=== PATIENT | male | born 1980 ===

== ENCOUNTER 2016-05-22 11:45 | Inpatient (IN) | payer MEDICAID, OTHER ==
[~2016-05-22] VITALS: Ht 177.8 cm; Wt 97.0 kg
[~2016-05-22 11:45] MED LIST: IBUP800T28 PO; LEVE100014 PO; Midazolam 5 mg/mL 10 mL Inj IV PRN; TAMS0.4C98 PO; levETIRAcetam Inj 1,000 MG in IV Premix 1 EACH IV ONE
[2016-05-22] MEDS ORDERED: 0.9% Sodium Chloride 1,000 ML IV ONE ×2 (11:46→11:55)
--- NOTE | 2016-05-22 11:48 | ED.REPORT ---
HPI-Seizure Date of Service May 22, 2016 ED Provider: Terrance Maynard MD The patient is a 36 year old male with a hx of seizure disorder on Keppra presents to the ED via EMS due to an uncontrollable seizure. EMS was called due to a witnessed seizure. They administered 5 mg midazolam and his seizure stopped. He started seizing again about 5-10 minutes later. They administered an additional 5 mg Midazolam with no change. His vitals were stable en route. Nursing Notes Stated Complaint: SEIZURE Nursing Notes Reviewed: Yes Allergies: Coded Allergies: hydrocodone (Verified Allergy, Severe, Rash,Itching,SOB, 05/22/16) Scheduled Levetiracetam (Keppra) 1,000 Mg Tablet 2,000 MG PO BID Tamsulosin (Flomax) 0.4 Mg Capsule 0.4 MG PO DAILY Scheduled PRN Ibuprofen (Ibuprofen) 800 Mg Tablet 800 MG PO TID PRN PRN For Pain General Time Seen by Provider: 11:45 Chief Complaint Chief Complaint: Seizure, generalized Seizure Anatomic Location: Generalized Hx Obtained From: Other family..., EMS Arrived By: Ambulance Onset Occurred: Just prior to arrival Symptom Duration: Waxes and wanes Progression Since Onset: Waxes and wanes Recent Healthcare: No recent hospitalization, Recent doctor visit Similar Sx Previous: Yes Past Medical History Past Medical History 1. Status epilepticus. 2. Opiate use disorder on Suboxone. 3. Kidney disease 4. 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 Reports: Hypertension Past Surgical History 1. Tonsillectomy. 2. Appendectomy. 3. Cholecystectomy. 4. Nose surgery Family History Noncontributory Smoking History Current Every Day Smoker Social History The patient is engaged, has 4 children 2 boys and 2 girls (ages 1, 3, 5, 6). 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 Ambulatory Status Independent Review of Systems Unable to Obtain ROS Patient condition Neurologic: Reports: Seizure, Shaking Physical Exam Initial Vital Signs Vital Signs (First) Date Time Temp Pulse Resp B/P Pulse Ox O2 Delivery O2 Flow Rate FiO2 05/22/16 11:55 38.0 115 27 125/70 98 Room Air 05/22/16 12:12 2 Initial VS: Reviewed Abdomen / GI: Soft, Non-tender, No guarding, No rebound, No distention Lymphatic: No lymphadenopathy Extremities: Vascular intact, Neuro intact, No swelling, No tenderness Skin: Warm, Dry, No cyanosis Alertness: Positive: Unresponsive Appears post ictal Neck: Supple, No swelling He has what appears to be hickies bilaterally to his neck. Respiratory / Chest: Atraumatic, Breath sounds NL, Breath sounds = bilat, No respiratory distress, No rales, No rhonchi, No wheezing Cardiovascular: Regular rhythm, Heart sounds NL, No murmurs, No rubs Heart Rate / Rhythm: Positive: Tachycardia Mental Status: Positive: Unresponsive Appears post-ictal Head / Eyes: Atraumatic, Normocephalic Pupils are pinpoint bilaterally ENT: Airway patent Upper Extremity / MS: No deformity, Neurologic intact, Vascular intact Lower Extremity / Pelvis / MS: No deformity, Neurologic intact, Vascular intact Interpretation & Diagnostics Lab Results Interpretation Result Diagram: 05/22/16 1115 05/22/16 1115 Test 05/22/16 11:15 05/22/16 12:11 05/22/16 12:15 White Blood Count 6.8th/mm3 (3.8-10.1) Red Blood Count 4.98mil/mm3 (4.40-5.80) Hemoglobin 14.6g/dL (13.8-17.2) Hematocrit 43.1% (41.0-50.0) Mean Corpuscular Volume 86.5fL (81-100) Mean Corpuscular Hemoglobin 29.3pg (27.0-35.0) Mean Corpuscular Hemoglobin Concent 33.9% (32.0-37.0) Red Cell Distribution Width 13.3% (12.3-15.4) Platelet Count 278bil/L (150-400) Neutrophils (%) (Auto) 53.8% (40-74) Lymphocytes (%) (Auto) 32.6% (14-46) Monocytes (%) (Auto) 11.0% (4-12) Eosinophils (%) (Auto) 1.8% (0-5) Basophils (%) (Auto) 0.7% (0-3) Sodium Level 147mEq/L (134-144) Potassium Level 4.6mEq/L (3.5-5.2) Chloride Level 107mEq/L (97-108) Carbon Dioxide Level 22mmol/L (18-29) Blood Urea Nitrogen 9mg/dL (6-20) Creatinine 0.97mg/dL (0.76-1.27) Estimat Glomerular Filtration Rate 93mL/min (>59) Glucose Level 105mg/dL (60-99) Calcium Level 8.9mg/dL (8.5-10.1) Lactic Acid Level 2.6mmol/L (0.4-2.0) CT Head Interpretation IMPRESSION: 1. No acute intracranial abnormalities. 2. New bilateral sphenoid sinus mucosal thickening may reflect sinusitis. 3. Nonacute right nasal fracture as before. Dictated by: Tulio Avilez M.D. on 05/22/2016 at 13:16 Study: Head CT no contrast Interpretation / Wet Read by: Interpret - Radiologist Re-Eval/Medical Decision Med Decision/Clinical Course The patient is a 36 year old male with a hx of seizure disorder on Keppra presents to the ED via EMS due to an uncontrollable seizure. The patient arrives actively seizing despite receiving two 5 mg doses of Versed prior to arrival. Patient was placed on continuous cardiac monitoring, pulse oximetry and end-tidal CO2. He was tachycardic but with otherwise stable vital signs. Due to the patient being actively seizing no history was able to be initially obtained. IV access was obtained and we administered 5 mg of Versed. He did not demonstrate any respiratory depression. He was loaded with 1000 mg of IV Keppra. CT scan of the head was obtained and demonstrated no evidence of acute intracranial process or hemorrhage. Laboratory studies were obtained as below: CBC unremarkable, CMP: hypernatremia with a sodium 147, lactic acid 2.6, electrolytes otherwise unremarkable, Keppra level pending Keppra level remained pending. Given the severity of the patient's seizure, intractable nature of his seizure I feel that he should be admitted for neurology consultation and further tailoring of his antiepileptic medications. Patient was discussed with the admitting hospitalist and transferred to the [facility] stable condition. Meanwhile here in the emergency department the patient was postictal though he woke up and was confused as to time and location. I suspect that this is related to his postictal state. Source of Hx: Old records, EMS Consultation : Referral / Consult Name: Klaudia Norwood MD Consulted With: Hospitalist Call Returned at: 12:21 Supervisor [employer] Workers: Will see patient, Agrees with eval, Agrees with plan, Accepts admit Counseled Regarding: Diagnosis, Lab results, Need for admission Discharge & Departure Impression: Primary Impression: Seizure Additional Impressions: Postictal state Status epilepticus Elevated lactic acid level Hypernatremia Tachycardia Disposition: ADMITTED TO HOSPITAL Discharge Condition All VS Reviewed: Yes Condition: Stable Referrals: Jazmine Holguin MD (PCP) (Family) Crit Care Except Billable Proc Time Spent: 105-134 minutes Services Performed: Patient management by me, Time spent at bedside, Reviewing test results, Reviewing imaging, Discussing patient care, Documentation in record, Time with fam/surrogate Scribe Attestation Portions of this note were transcribed by Kavya Correa. I, Dr. Maynard personally performed the history, physical exam and medical decision-making; I reviewed and confirmed the accuracy of the information in the transcribed note. Signed by: Sameera Ferrari, 05/21/2015 and 1330. copies to: Jazmine Holguin MD, Beck O MD May 22, 2016 11:48 Kavya Correa May 22, 2016 11:56
[2016-05-22] MEDS ORDERED: Ondansetron 2 mg/mL 2 mL Inj IVPUSH ONE (11:50)
[2016-05-22 11:55] VITALS: BP 125/70; PULSE 115; RESP 27; O2SAT 98
[2016-05-22 12:12] VITALS: BP 103/64; PULSE 90; RESP 19; O2SAT 97
[2016-05-22 12:44] LABS: BASOPHILS % (AUTO) 0.7 % (0-3); EOSINOPHILS % (AUTO) 1.8 % (0-5); Mean Corpuscular Hemoglobin 29.3 pg (27.0-35.0); Mean Corpuscular Volume 86.5 fL (81-100); NEUTROPHILS % (AUTO) 53.8 % (40-74); Platelet Count 278 bil/L (150-400)
--- NOTE | 2016-05-22 13:21 | DRSVH ---
PROCEDURE: CT BRAIN WITHOUT CONTRAST ([id number]) INDICATIONS: 36-year-old male with new onset seizures. TECHNIQUE: Noncontrast 4.5 mm thick angled axial sections acquired from the foramen magnum to the vertex, with c oronal reformats. COMPARISON: Outside Film, MR, MR BRAIN W&WO CON, 05/12/2015, 17:07. [facility], CT, CT B RAIN WO CON, 04/07/2016, 10:24. Outside Film, CT, CT BRAIN WO CON, 05/11/2015, 21:15. [facility], CT, CT BRAIN WO CON, 05/11/2015, 15:56. FINDINGS: Image quality: Excellent. CSF spaces: Basal cisterns are patent. No extra-axial fluid collections. Ventricles are normal in size and shape. Brain: No midline shift. No intracranial masses or hemorrhage. Forrester-white matter interface is norm al. Skull and face: Calvarium appears intact, without suspicious lesions. Nonacute right nasal fracture is again noted. Sinuses: Visualized sinuses and mastoids are clear, except for new moderate bilateral sphenoid sinus mucosal thickening. IMPRESSION: 1. No acute intracranial abnormalities. 2. New bilateral sphenoid sinus mucosal thickening may reflect sinusitis. 3. Nonacute right nasal fracture as before. Dictated by: Tulio Avilez M.D. on 05/22/2016 at 13:16 Approved by: Tulio Avilez M.D. on 05/22/2016 at 13:20
[2016-05-22 13:23] VITALS: BP 98/62; PULSE 79; RESP 16; O2SAT 99
[2016-05-22] MEDS ORDERED: Alum-Mag Hydrox-Simeth 30 mL Suspension PO PRN ×2 (13:35→17:05)
[2016-05-22] MEDS ORDERED: Ondansetron 2 mg/mL 2 mL Inj IVPUSH PRN ×2 (13:35→17:05)
[2016-05-22 14:09] VITALS: BP 98/62; PULSE 79; RESP 16; O2SAT 99
[2016-05-22 14:42] VITALS: BP 107/64; PULSE 64; RESP 15; O2SAT 99
--- NOTE | 2016-05-22 14:42 | NUR ---
Admit [facility] Pt transferred from ED at approx 1440, arrived with bag of belongings. Pt sleepy but aroused by minor stimulation, IV fluids infusing, 3L O2. REGULATORY COORDINATOR charting VS now, assessment and admit by show card writer to follow. Care continues
[2016-05-22 16:56] VITALS: BP 126/64; PULSE 58; RESP 16; O2SAT 97
[2016-05-22] MEDS ORDERED: Polyethylene Glycol (PEG) 17 Gm Powder PO PRN (17:05)
--- NOTE | 2016-05-22 17:25 | PCM.HPMED ---
Subjective Date of Service May 22, 2016 Primary Provider: Admitting Physician: Klaudia Norwood MD Primary Care Physician: Jazmine Holguin MD Attending Physician: Klaudia Norwood MD Chief Complaint: Seizure History of Present Illness: Patient says he has been feeling well. Last he remembers he was at home, had just finished talking on the phone with his who is at work, was then talking with his mother who was there at his home and does not remember anything after that. He is been told that he began to have a seizure and collapsed to the floor. According to the emergency physician and EMS was called and the patient was having seizure activity when they arrived and they gave him 5 mg of midazolam. The seizure stopped but then about 5-10 minutes later he again began having what looked like seizure activity so they gave an additional 5 mg of midazolam. There was no change with this and the apparent seizure activity continued and was still present when he arrived in the emergency department. He was given another 5 mg of Versed with no change and then loaded with 1000 mg of Keppra and subsequently seizure activity ceased. Currently he is alert and has no complaints. Review of Systems: Review of systems is unremarkable. He denies any recent acute illnesses. No headache, no URI, sinus symptoms, cough, fever or chills. No sore throat or difficulty swallowing. No shortness of breath or chest pain. No heartburn or abdominal pain, nausea vomiting or diarrhea. No dysuria. No joint or muscle pains, no swelling in his feet. Allergies Coded Allergies: hydrocodone (Verified Allergy, Severe, Rash,Itching,SOB, 05/22/16) Home Medications Initially he stated he is taking 1000 mg of Keppra twice a day the name and I said the emergency department thought it was 2000 mg twice a day he agreed that that is his current dose. He says it is being prescribed by Dr. Villa but does not recall the last time he has seen her. He says he does have an appointment with her in July. Keppra level is still pending today but there is one in the computer in March which is "none detected". He says the [facility] did a Keppra level 2 weeks ago and results were to be sent to Dr. Paredes but he has not heard the results. He says he obtains Keppra from the [facility] but they are not open today to confirm. He states he is on Suboxone 10 mg daily and says he receives this from Dr. Amado and at [facility] Possible seizure disorder, but also see Dr. Ricci neurology consult in September 2015. She was not sure these spells represented true seizures and also noted that he has not had any documented abnormal EEG. History of opioid abuse and by his report currently on Suboxone Surgical History Tonsillectomy, appendectomy, cholecystectomy. 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 Hx Alcohol Use: No (none for 15 years) Hx Substance Use: Yes (opiates, , now on suboxone) Smoking Status: Current Every Day Smoker (says 6 cigarettes per day) Living Arrangement: with Family (spouse and 3 children, also has 3 children by a previous marriage) Exam Vital Signs Vital Sign - Last Date Time Temp Pulse Resp B/P Pulse Ox O2 Delivery O2 Flow Rate FiO2 05/22/16 16:56 36.7 58 16 126/64 97 Room Air 05/22/16 14:42 3.00 Exam Alert and oriented HEENT unremarkable, cranial nerves appear intact Neck supple, no JVD, carotids 2+ Heart regular Lungs clear Abdomen soft, nontender, bowel tones normal, no apparent masses or hepatosplenomegaly Extremities unremarkable Hand hot stick man are strong and equal, raises both legs strongly off the bed against resistance Lab and Diagnostics Result Diagram: 05/22/16 1115 05/22/16 1115 X-Rays, CTs and MRIs Date of Service: 05/22/16 1146 PROCEDURE: CT BRAIN WITHOUT CONTRAST ([id number]) INDICATIONS: 36-year-old male with new onset seizures. TECHNIQUE: Noncontrast 4.5 mm thick angled axial sections acquired from the foramen magnum to the vertex, with coronal reformats. COMPARISON: Outside Film, MR, MR BRAIN W&WO CON, 05/12/2015, 17:07. [facility], CT, CT BRAIN WO CON, 04/07/2016, 10:24. Outside Film, CT, CT BRAIN WO CON, 05/11/2015, 21:15. [facility], CT, CT BRAIN WO CON, , 15:56. FINDINGS: Image quality: Excellent. CSF spaces: Basal cisterns are patent. No extra-axial fluid collections. Ventricles are normal in size and shape. Brain: No midline shift. No intracranial masses or hemorrhage. Forrester-white matter interface is normal. Skull and face: Calvarium appears intact, without suspicious lesions. Nonacute right nasal fracture is again noted. Sinuses: Visualized sinuses and mastoids are clear, except for new moderate bilateral sphenoid sinus mucosal thickening. IMPRESSION: 1. No acute intracranial abnormalities. 2. New bilateral sphenoid sinus mucosal thickening may reflect sinusitis. 3. Nonacute right nasal fracture as before. Assessment & Plan 35-year-old male with a supposed history of seizure disorder although this is not clearly documented. He states he has been compliant on his Keppra therapy. He presented today with seizure-like activity refractory to Versed and subsequently ceased when loaded with Keppra 1000 mg IV. Currently he states that he is not willing to stay the night in the hospital and wants to leave immediately. Therefore he signed out AMA. He does have a follow-up appointment , by his report, with his neurologist in July. He could also follow up at the [facility] as he reports they did recently do a Keppra level but he has not heard the results. Klaudia Norwood MD May 22, 2016 17:25
--- NOTE | 2016-05-22 17:35 | NUR ---
AMA Pt left AMA despite MD and discussions with senior medical writer over risks involved. AMA paperwork signed, copy to chart. IV x2 d/c intact. VS stable upon leaving unit. All belongings taken with him. Pt walked off unit on foot.
[2016-05-22] MEDS ORDERED: levETIRAcetam 500 mg Tablet PO SCH (20:30)
--- NOTE | 2016-05-23 11:26 | PCM.DC.MED ---
Discharge Summary Date of Service May 22, 2016 Dates of Hospitalization Date of Hospital Admission May 22, 2016 at 12:51 Date of Discharge: May 22, 2016 Providers: Admitting Physician: Klaudia Norwood MD Primary Care Physician: Jazmine Holguin MD Attending Physician: Klaudia Norwood MD Procedures XRay, CTs & MRIs Date of Service: 05/22/16 1146 PROCEDURE: CT BRAIN WITHOUT CONTRAST ([id number]) INDICATIONS: 36-year-old male with new onset seizures. TECHNIQUE: Noncontrast 4.5 mm thick angled axial sections acquired from the foramen magnum to the vertex, with coronal reformats. COMPARISON: Outside Film, MR, MR BRAIN W&WO CON, 05/12/2015, 17:07. [facility], CT, CT BRAIN WO CON, 04/07/2016, 10:24. Outside Film, CT, CT BRAIN WO CON, 05/11/2015, 21:15. [facility], CT, CT BRAIN WO CON, , 15:56. FINDINGS: Image quality: Excellent. CSF spaces: Basal cisterns are patent. No extra-axial fluid collections. Ventricles are normal in size and shape. Brain: No midline shift. No intracranial masses or hemorrhage. Forrester-white matter interface is normal. Skull and face: Calvarium appears intact, without suspicious lesions. Nonacute right nasal fracture is again noted. Sinuses: Visualized sinuses and mastoids are clear, except for new moderate bilateral sphenoid sinus mucosal thickening. IMPRESSION: 1. No acute intracranial abnormalities. 2. New bilateral sphenoid sinus mucosal thickening may reflect sinusitis. 3. Nonacute right nasal fracture as before. Brief History Patient says he has been feeling well. Last he remembers he was at home, had just finished talking on the phone with his who is at work, was then talking with his mother who was there at his home and does not remember anything after that. He is been told that he began to have a seizure and collapsed to the floor. According to the emergency physician and EMS was called and the patient was having seizure activity when they arrived and they gave him 5 mg of midazolam. The seizure stopped but then about 5-10 minutes later he again began having what looked like seizure activity so they gave an additional 5 mg of midazolam. There was no change with this and the apparent seizure activity continued and was still present when he arrived in the emergency department. He was given another 5 mg of Versed with no change and then loaded with 1000 mg of Keppra and subsequently seizure activity ceased. Currently he is alert and has no complaints. Hospital Course 35-year-old male with a supposed history of seizure disorder although this is not clearly documented. He states he has been compliant on his Keppra therapy. He presented today with seizure-like activity refractory to Versed and subsequently ceased when loaded with Keppra 1000 mg IV. Currently he states that he is not willing to stay the night in the hospital and wants to leave immediately. Therefore he signed out AMA. He does have a follow-up appointment , by his report, with his neurologist in July. He could also follow up at the [facility] as he reports they did recently do a Keppra level but he has not heard the results. Exam Vital Signs (Last) Date Time Temp Pulse Resp B/P Pulse Ox O2 Delivery O2 Flow Rate FiO2 05/22/16 16:56 36.7 58 16 126/64 97 Room Air 05/22/16 14:42 3.00 Test 05/22/16 11:15 05/22/16 12:11 05/22/16 12:15 White Blood Count 6.8th/mm3 (3.8-10.1) Red Blood Count 4.98mil/mm3 (4.40-5.80) Hemoglobin 14.6g/dL (13.8-17.2) Hematocrit 43.1% (41.0-50.0) Mean Corpuscular Volume 86.5fL (81-100) Mean Corpuscular Hemoglobin 29.3pg (27.0-35.0) Mean Corpuscular Hemoglobin Concent 33.9% (32.0-37.0) Red Cell Distribution Width 13.3% (12.3-15.4) Platelet Count 278bil/L (150-400) Neutrophils (%) (Auto) 53.8% (40-74) Lymphocytes (%) (Auto) 32.6% (14-46) Monocytes (%) (Auto) 11.0% (4-12) Eosinophils (%) (Auto) 1.8% (0-5) Basophils (%) (Auto) 0.7% (0-3) Sodium Level 147mEq/L (134-144) Potassium Level 4.6mEq/L (3.5-5.2) Chloride Level 107mEq/L (97-108) Carbon Dioxide Level 22mmol/L (18-29) Blood Urea Nitrogen 9mg/dL (6-20) Creatinine 0.97mg/dL (0.76-1.27) Estimat Glomerular Filtration Rate 93mL/min (>59) Glucose Level 105mg/dL (60-99) Calcium Level 8.9mg/dL (8.5-10.1) Lactic Acid Level 2.6mmol/L (0.4-2.0) Discharge Medications Discharge Medications Levetiracetam (Keppra) 1,000 Mg Tablet 2,000 MG PO BID (Reported) Tamsulosin (Flomax) 0.4 Mg Capsule 0.4 MG PO DAILY Prescribed by: ISAIAH JULIEN MD As needed Ibuprofen (Ibuprofen) 800 Mg Tablet 800 MG PO TID PRN PRN For Pain Prescribed by: ISAIAH JULIEN MD Followup Plan Disposition: Klaudia Miguel MD May 23, 2016 11:26
== END 2016-05-22 17:34 | disposition left against medical advice (07) | DRG 101 ==
LOC: SED 11:45 → OSC 12:51
PROVIDERS: ADMIT Internal Medicine; ATTEND Internal Medicine
DX: G40.901 Epilepsy, unspecified, not intractable, with status epilepticus (principal); F17.210 Nicotine dependence, cigarettes, uncomplicated

== ENCOUNTER 2016-10-07 05:04 | Emergency (ER) | payer MEDICAID, OTHER ==
[~2016-10-07 05:04] MED LIST changes: -Midazolam 5 mg/mL 10 mL Inj IV PRN; -levETIRAcetam Inj 1,000 MG in IV Premix 1 EACH IV ONE
[2016-10-07] MEDS ORDERED: Ondansetron 2 mg/mL 2 mL Inj IVPUSH PRN (05:20)
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
[2016-10-07 05:28] LABS: BASOPHILS % (AUTO) 1.1 % (0-3); MONOCYTES % (AUTO) 8.6 % (4-12); Mean Corpuscular Hemoglobin 28.5 pg (27.0-35.0); Mean Corpuscular Volume 84.9 fL (81-100); NEUTROPHILS % (AUTO) 60.4 % (40-74); Platelet Count 240 bil/L (150-400)
[2016-10-07 05:59] LABS: INR 1.01 ratio
[2016-10-07 06:00] LABS: Magnesium 2.2 mg/dL (1.6-2.6)
[2016-10-07] MEDS ORDERED: fentaNYL-PF 50 mCg/mL 2 mL Inj IVPUSH ONE (06:15)
[2016-10-07 06:42] LABS: APPEARANCE,URINE CLEAR (CLEAR,HAZY); COLOR,URINE YELLOW (YELLOW)
[2016-10-07 06:43] LABS: OCCULT BLOOD,URINE NEGATIVE (NEGATIVE); UROBILINOGEN,URINE NORMAL (NORMAL)
[2016-10-07] MEDS ORDERED: IBUP-1827 PO (07:33)
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
== END 2016-10-07 08:30 | disposition home or self-care (01) ==
LOC: SED 05:04 → EDBD 05:04 → SED 08:30
DX: S20.211A Contusion of right front wall of thorax, initial encounter (principal); V43.03XA Car driver injured in collision with pick-up truck in nontraffic accident, initial encounter; Y93.9 Activity, unspecified; Y92.89 Other specified places as the place of occurrence of the external cause; Y99.8 Other external cause status; I13.10 Hypertensive heart and chronic kidney disease without heart failure, with stage 1 through stage 4 chronic kidney disease, or unspecified chronic kidney disease; N28.9 Disorder of kidney and ureter, unspecified; G40.901 Epilepsy, unspecified, not intractable, with status epilepticus; F17.200 Nicotine dependence, unspecified, uncomplicated; Z88.5 Allergy status to narcotic agent
CPT/HCPCS: 36415; 70450; 71010; 71260; 72125; 72170; 74177; 80053; 81001; 83735; 85014; 85018; 85025; 85610; 85730; 99285; G0390; G0480; Q9967